=== PATIENT | male | born 1990 | race Caucasian/White ===

== ENCOUNTER → 2021-07-24 | Outpatient (CLI) | payer OTHER ==
[~2021-07-24] MED LIST: K-DUR TAB 20 M20 MEQ PO; OMNICEF 300 MG300 MG PO; TAMIFLU75 MG PO; ZOFRAN ODT 4 MG4 MG PO
== END ==
LOC: KOH-I 11:25
DX: M54.5 Low back pain (principal)
CPT/HCPCS: 72110

== ENCOUNTER 2021-10-05 00:43 | Emergency (ER) | payer OTHER ==
[2021-10-05] MEDS ORDERED: NEOMYCIN-POLYMY10 ML EARLF (03:05)
== END 2021-10-05 03:07 | disposition home or self-care (01) ==
LOC: ER1 00:43
DX: T16.2XXA Foreign body in left ear, initial encounter (principal)
CPT/HCPCS: 99282